=== PATIENT | male | born 1965 | race African-American/Black ===

== ENCOUNTER 2017-02-11 00:42 | Emergency (ER) | payer MEDICAID ==
[~2017-02-11] VITALS: Ht 185.4 cm; Wt 81.8 kg
[2017-02-11 00:44] VITALS: BP 129/98
== END 2017-02-11 04:00 | disposition left against medical advice (07) ==
LOC: ER 00:42
DX: R53.83 Other fatigue (principal); Z53.21 Procedure and treatment not carried out due to patient leaving prior to being seen by health care provider
CPT/HCPCS: 93005

== ENCOUNTER 2017-02-22 10:23 | Emergency (ER) | payer MEDICAID ==
[~2017-02-22] VITALS: Ht 180.3 cm; Wt 90.0 kg
[2017-02-22 10:24] VITALS: BP 103/80
== END 2017-02-22 13:36 | disposition home or self-care (01) ==
LOC: ER 10:48
DX: Z04.8 Encounter for examination and observation for other specified reasons (principal); I12.9 Hypertensive chronic kidney disease with stage 1 through stage 4 chronic kidney disease, or unspecified chronic kidney disease; E11.22 Type 2 diabetes mellitus with diabetic chronic kidney disease; N18.9 Chronic kidney disease, unspecified; K76.9 Liver disease, unspecified
CPT/HCPCS: 99283

== ENCOUNTER 2017-02-22 23:08 | Emergency (ER) | payer MEDICAID ==
[~2017-02-22] VITALS: Ht 182.9 cm; Wt 81.0 kg
[2017-02-23 03:03] LABS: BASOPHILS % 0.3 % (0.0-2.0); HEMATOCRIT. 46.5 % (42.0-52.0); HEMOGLOBIN. 15.5 g/dL (14.0-18.0); LYMPHOCYTES % 44.8 % (20.0-50.0); MEAN CORPUSCULAR HEMOGLOBIN 27.2 pg (28.0-32.0); MEAN CORPUSCULAR VOLUME 81.5 fL (80.0-94.0); MEAN PLATELET VOLUME 9.1 fl (7.4-10.4); MONOCYTES % 7.4 % (2.0-8.0); NEUTROPHILS % 45.5 % (40.0-76.0); PLATELET 138 x1000/uL (130-400); RED BLOOD CELL COUNT 5.71 mill/uL (4.7-6.1)
[2017-02-23 03:05] LABS: CARBON DIOXIDE 23 mEq/L (21-32); CHLORIDE 105 mEq/L (98-107); ETHANOL BLOOD < 10 mg/dL
[2017-02-23] MEDS ORDERED: SODIUM CHLORIDE 0.9% 1,000 ML IV ONE (05:00)
[2017-02-23 10:35] VITALS: BP 138/109
== END 2017-02-23 10:38 | disposition home or self-care (01) ==
LOC: ER 23:08
DX: R40.4 Transient alteration of awareness (principal); F14.10 Cocaine abuse, uncomplicated; F12.10 Cannabis abuse, uncomplicated; R03.0 Elevated blood-pressure reading, without diagnosis of hypertension; F91.8 Other conduct disorders; E11.9 Type 2 diabetes mellitus without complications; I51.9 Heart disease, unspecified
CPT/HCPCS: 36415; 80048; 80307; 80329; 85025; 99284; G0482; J7030

== ENCOUNTER 2017-04-01 12:15 | Inpatient (IN) | payer MEDICAID ==
[~2017-04-01] VITALS: Ht 167.6 cm; Wt 77.1 kg
[2017-04-01 15:21] LABS: BASOPHILS % 1.2 % (0.0-2.0); EOSINOPHILS % 0.5 % (0.0-5.0); HEMATOCRIT. 46.7 % (42.0-52.0); HEMOGLOBIN. 15.1 g/dL (14.0-18.0); LYMPHOCYTES % 33.7 % (20.0-50.0); MEAN CORPUSCULAR HEMOGLOBIN 25.7 pg (28.0-32.0); MEAN CORPUSCULAR VOLUME 79.7 fL (80.0-94.0); MEAN PLATELET VOLUME 8.1 fl (7.4-10.4); NEUTROPHILS % 57.6 % (40.0-76.0); PLATELET 203 x1000/uL (130-400); RED BLOOD CELL COUNT 5.86 mill/uL (4.7-6.1); RED CELL DISTRIBUTION WIDTH 17.3 % (11.6-14.6)
[2017-04-01 15:24] LABS: CARBON DIOXIDE 26 mEq/L (21-32); CHLORIDE 97 mEq/L (98-107)
[2017-04-01 15:30] LABS: TROPONIN I < 0.02 ng/mL (0.00-0.04)
[2017-04-01 15:37] LABS: D-DIMER 8.07 mg/L FEU (<0.50); INR 1.7; PROTHROMBIN TIME 17.7 sec (9.4-11.6)
[2017-04-01] MEDS ORDERED: LEVOFLOXACIN 750MG PREMIX 150 ML IV NR (15:45)
[2017-04-01] MEDS ORDERED: SODIUM CHLORIDE 0.9% 1000ML BAG (SEPSIS BOLUS) IV ONE (18:15)
[2017-04-01 22:00] VITALS: BP 120/87
[2017-04-01] MEDS ORDERED: IPRATROPIUM/ALBUTEROL 0.5-3(2.5)MG/3ML NEB INH PRN (23:00)
[2017-04-01] MEDS ORDERED: HYDROMORPHONE HCL/PF 2MG/ML CPJ IV PRN (23:00)
[2017-04-01] MEDS ORDERED: ACETAMINOPHEN 325MG TABLET PO PRN (23:00)
[2017-04-01] MEDS ORDERED: CLONIDINE 0.1MG TABLET PO PRN (23:00)
[2017-04-01] MEDS ORDERED: GUAIFENESIN 200MG/10ML SUGAR FREE UDC PO PRN (23:00)
[2017-04-01] MEDS ORDERED: ONDANSETRON HCL 4MG/2ML VIAL IV PRN (23:00)
[2017-04-01] MEDS ORDERED: HYDROCODONE/ACETAMINOPHEN 5/325MG TABLET PO PRN (23:00)
[2017-04-01] MEDS ORDERED: DOCUSATE SODIUM 100MG CAPSULE PO PRN (23:00)
[2017-04-01] MEDS ORDERED: DEXTROSE 50% WATER 50ML SYRINGE IV PRN (23:15)
[2017-04-02] VITALS: BP 125/96
[2017-04-02 04:00] VITALS: BP 140/95
[2017-04-02] MEDS: BLOOD SUGAR DIAGNOSTIC STRIP TEST SCH ×4 (06:05→20:25)
[2017-04-02] MEDS: INSULIN LISPRO 100 UNITS/ML SUBCUT SCH ×4 (06:11→21:00)
[2017-04-02 07:34] LABS: CARBON DIOXIDE 22 mEq/L (21-32); CHLORIDE 101 mEq/L (98-107); HDL CHOLESTEROL 17 mg/dL (40-59); LDL CHOLESTEROL 113 mg/dL (5-100)
[2017-04-02 08:00] VITALS: BP 131/95
[2017-04-02] MEDS: ASPIRIN 81MG EC TABLET PO SCH (09:01)
[2017-04-02] MEDS: ENOXAPARIN 40MG/0.4ML SYR SUBCUT SCH (09:01)
[2017-04-02] MEDS: FUROSEMIDE 40MG/4ML VIAL IV SCH (09:01)
[2017-04-02] MEDS: METOPROLOL TARTRATE 25MG TABLET PO SCH ×2 (09:02→20:28)
[2017-04-02 09:55] LABS: BASOPHILS % 0.9 % (0.0-2.0); EOSINOPHILS % 0.3 % (0.0-5.0); HEMATOCRIT. 44.3 % (42.0-52.0); HEMOGLOBIN. 14.1 g/dL (14.0-18.0); LYMPHOCYTES % 33.3 % (20.0-50.0); MEAN CORPUSCULAR HEMOGLOBIN 25.4 pg (28.0-32.0); MEAN PLATELET VOLUME 8.6 fl (7.4-10.4); MONOCYTES % 12.3 % (2.0-8.0); NEUTROPHILS % 53.2 % (40.0-76.0); PLATELET 173 x1000/uL (130-400); RED BLOOD CELL COUNT 5.54 mill/uL (4.7-6.1); RED CELL DISTRIBUTION WIDTH 17.8 % (11.6-14.6)
[2017-04-02 12:17] VITALS: BP 117/94
[2017-04-02] MEDS ORDERED: IPRATROPIUM/ALBUTEROL 0.5-3(2.5)MG/3ML NEB INH PRN (15:15)
[2017-04-02 16:00] VITALS: BP 115/88
[2017-04-02] MEDS: LEVOFLOXACIN 500MG PREMIX 100 ML IV SCH (17:30)
[2017-04-02] MEDS: METHYLPREDNISOLONE SOD SUCC 125 MG/2 ML VIAL IV SCH (17:30)
[2017-04-02 17:32] LABS: BG BASE EXCESS -5.4 mmol/L (-2.0-2.0); BG CARBOXYHEMOGLOBIN 0.9 % (0.5-1.5); BG DEOXYHEMOGLOBIN 1.2 % (0.0-5.0); BG HCO3 ACT 16.4 mmol/L (22.0-26.0); BG METHEMOGLOBIN 0.3 % (0.0-1.5); BG OXYGEN SATURATION 98.8 % (92.0-98.5); BG OXYHEMOGLOBIN 97.6 % (94.0-97.0); BG PCO2 24.3 mmHg (35.0-45.0); BG PH 7.446 (7.350-7.450); BG PO2 138.1 mmHg (75.0-100.0); BG SAMPLE SITE RIGHT RADIAL; BG TOTAL HEMOGLOBIN 16.1 g/dL (12.0-18.0); BG VENT MODE NASAL CANNULA
[2017-04-02 20:00] VITALS: BP 120/96
[2017-04-02] MEDS: IPRATROPIUM/ALBUTEROL 0.5-3(2.5)MG/3ML NEB HHN SCH (21:07)
[2017-04-03] VITALS: BP 116/94
[2017-04-03] MEDS: IPRATROPIUM/ALBUTEROL 0.5-3(2.5)MG/3ML NEB HHN SCH ×2 (01:03→09:33)
[2017-04-03] MEDS: METHYLPREDNISOLONE SOD SUCC 125 MG/2 ML VIAL IV SCH ×3 (01:51→18:07)
[2017-04-03 04:00] VITALS: BP 117/96
[2017-04-03] MEDS: BLOOD SUGAR DIAGNOSTIC STRIP TEST SCH ×4 (06:11→21:00)
[2017-04-03] MEDS: INSULIN LISPRO 100 UNITS/ML SUBCUT SCH ×4 (06:14→22:10)
[2017-04-03 08:00] VITALS: BP 118/84
[2017-04-03] MEDS: ENOXAPARIN 40MG/0.4ML SYR SUBCUT SCH (08:53)
[2017-04-03] MEDS: ASPIRIN 81MG EC TABLET PO SCH (09:19)
[2017-04-03] MEDS: METOPROLOL TARTRATE 25MG TABLET PO SCH ×2 (09:20→21:49)
[2017-04-03] MEDS: FUROSEMIDE 40MG/4ML VIAL IV SCH (09:20)
[2017-04-03 12:00] VITALS: BP 117/93
[2017-04-03 16:00] VITALS: BP 115/86
[2017-04-03] MEDS: LEVOFLOXACIN 500MG PREMIX 100 ML IV SCH (18:05)
[2017-04-03 20:00] VITALS: BP 120/80
[2017-04-04] VITALS: BP 122/75
[2017-04-04] MEDS: IPRATROPIUM/ALBUTEROL 0.5-3(2.5)MG/3ML NEB HHN SCH ×2 (00:59→09:16)
[2017-04-04] MEDS: METHYLPREDNISOLONE SOD SUCC 125 MG/2 ML VIAL IV SCH ×2 (01:32→09:21)
[2017-04-04 04:00] VITALS: BP 99/76
[2017-04-04] MEDS: BLOOD SUGAR DIAGNOSTIC STRIP TEST SCH ×2 (06:17→12:10)
[2017-04-04] MEDS: INSULIN LISPRO 100 UNITS/ML SUBCUT SCH ×2 (06:56→12:40)
[2017-04-04 08:00] VITALS: BP 109/83
[2017-04-04] MEDS: ENOXAPARIN 40MG/0.4ML SYR SUBCUT SCH (09:00)
[2017-04-04] MEDS: METOPROLOL TARTRATE 25MG TABLET PO SCH (09:00)
[2017-04-04] MEDS: ASPIRIN 81MG EC TABLET PO SCH (09:19)
[2017-04-04] MEDS: FUROSEMIDE 40MG/4ML VIAL IV SCH (09:22)
[2017-04-04 12:00] VITALS: BP 117/93
[2017-04-04 14:46] VITALS: BP 118/76
== END 2017-04-04 16:15 | disposition home or self-care (01) | DRG 720 ==
LOC: ER 15:26 → 8WST 16:33 → EDBEDREQ 16:43 → ENRESERV 19:46
PROVIDERS: ADMIT Hospitalist; ATTEND Hospitalist
DX: A41.9 Sepsis, unspecified organism (principal); J18.9 Pneumonia, unspecified organism; E11.22 Type 2 diabetes mellitus with diabetic chronic kidney disease; E78.5 Hyperlipidemia, unspecified; F17.210 Nicotine dependence, cigarettes, uncomplicated; I25.10 Atherosclerotic heart disease of native coronary artery without angina pectoris; J44.0 Chronic obstructive pulmonary disease with (acute) lower respiratory infection; J44.1 Chronic obstructive pulmonary disease with (acute) exacerbation; N18.9 Chronic kidney disease, unspecified; R65.20 Severe sepsis without septic shock; I12.9 Hypertensive chronic kidney disease with stage 1 through stage 4 chronic kidney disease, or unspecified chronic kidney disease
CPT/HCPCS: 36415; 36600; 71010; 78582; 80053; 80061; 82375; 82805; 82962; 83605; 83880; 84484; 85025; 85379; 85610; 87040; 93005; 93306; 93970; 94640; 94664; 96365; 99291; A9558; C1893; J1650; J1815; J1940; J1956; J2930; J7030; J7040; J7620

== ENCOUNTER 2017-04-18 22:05 | Inpatient (IN) | payer MEDICAID ==
[~2017-04-18] VITALS: Ht 175.3 cm; Wt 86.2 kg
[2017-04-18] MEDS ORDERED: FUROSEMIDE 40MG/4ML VIAL IV STA (22:18)
[2017-04-18 22:50] LABS: BASOPHILS % 1.1 % (0.0-2.0); EOSINOPHILS % 0.1 % (0.0-5.0); HEMATOCRIT. 43.9 % (42.0-52.0); HEMOGLOBIN. 14.4 g/dL (14.0-18.0); LYMPHOCYTES % 20.5 % (20.0-50.0); MEAN CORPUSCULAR HEMOGLOBIN 25.4 pg (28.0-32.0); MEAN CORPUSCULAR VOLUME 77.4 fL (80.0-94.0); MEAN PLATELET VOLUME 8.1 fl (7.4-10.4); MONOCYTES % 5.7 % (2.0-8.0); NEUTROPHILS % 72.6 % (40.0-76.0); PLATELET 124 x1000/uL (130-400); RED BLOOD CELL COUNT 5.67 mill/uL (4.7-6.1); RED CELL DISTRIBUTION WIDTH 18.5 % (11.6-14.6)
[2017-04-18 23:08] LABS: CARBON DIOXIDE 23 mEq/L (21-32); CHLORIDE 99 mEq/L (98-107); TROPONIN I 0.04 ng/mL (0.00-0.04)
[2017-04-19 02:10] VITALS: BP 125/90
[2017-04-19 04:00] VITALS: BP 127/94
[2017-04-19] MEDS ORDERED: MORPHINE SULFATE 4 MG/ML CPJ (NOT FOR IM USE) IV PRN (04:45)
[2017-04-19] MEDS ORDERED: ONDANSETRON HCL 4MG/2ML VIAL IV PRN (04:45)
[2017-04-19] MEDS ORDERED: CLONIDINE 0.1MG TABLET PO PRN (04:45)
[2017-04-19 07:35] LABS: BASOPHILS % 1.4 % (0.0-2.0); EOSINOPHILS % 0.2 % (0.0-5.0); HEMATOCRIT. 47.7 % (42.0-52.0); HEMOGLOBIN. 15.4 g/dL (14.0-18.0); LYMPHOCYTES % 22.1 % (20.0-50.0); MEAN CORPUSCULAR HEMOGLOBIN 25.4 pg (28.0-32.0); MEAN CORPUSCULAR VOLUME 78.7 fL (80.0-94.0); MEAN PLATELET VOLUME 8.9 fl (7.4-10.4); MONOCYTES % 6.5 % (2.0-8.0); NEUTROPHILS % 69.8 % (40.0-76.0); PLATELET 117 x1000/uL (130-400); RED BLOOD CELL COUNT 6.06 mill/uL (4.7-6.1); RED CELL DISTRIBUTION WIDTH 18.7 % (11.6-14.6)
[2017-04-19 07:58] VITALS: BP 108/88
[2017-04-19 08:06] LABS: CARBON DIOXIDE 21 mEq/L (21-32); CHLORIDE 99 mEq/L (98-107); CREATINE KINASE 174 IU/L (39-308); CREATINE KINASE MB FRACTION 2.4 ng/mL (0.5-3.6); HDL CHOLESTEROL 31 mg/dL (40-59); LDL CHOLESTEROL 101 mg/dL (5-100); TROPONIN I 0.02 ng/mL (0.00-0.04)
[2017-04-19] MEDS: FUROSEMIDE 100MG/10ML VIAL IVP SCH (08:43)
[2017-04-19] MEDS: ENOXAPARIN 40MG/0.4ML SYR SUBCUT SCH (08:44)
[2017-04-19] MEDS: ASPIRIN 81MG TABLET PO SCH (11:47)
[2017-04-19 12:00] VITALS: BP 119/93
[2017-04-19 16:00] VITALS: BP 108/88
[2017-04-19 16:16] LABS: CREATINE KINASE MB FRACTION 2.3 ng/mL (0.5-3.6); TROPONIN I 0.03 ng/mL (0.00-0.04)
[2017-04-19 20:00] VITALS: BP 118/92
[2017-04-19] MEDS: ATORVASTATIN CALCIUM 10MG TABLET PO SCH (21:40)
[2017-04-20] VITALS: BP 103/74
[2017-04-20 04:00] VITALS: BP 129/97
[2017-04-20 08:00] VITALS: BP 132/90
[2017-04-20] MEDS: FUROSEMIDE 100MG/10ML VIAL IVP SCH (08:28)
[2017-04-20] MEDS: ENOXAPARIN 40MG/0.4ML SYR SUBCUT SCH (08:29)
[2017-04-20] MEDS: ASPIRIN 81MG TABLET PO SCH (08:29)
[2017-04-20 12:00] VITALS: BP 117/90
[2017-04-20] MEDS: LEVOFLOXACIN 500MG PREMIX 100 ML IV SCH (15:14)
[2017-04-20] MEDS: GABAPENTIN 300MG CAPSULE PO SCH ×2 (15:14→21:00)
[2017-04-20 16:00] VITALS: BP 107/85
[2017-04-20 20:00] VITALS: BP 113/89
[2017-04-20] MEDS: ATORVASTATIN CALCIUM 10MG TABLET PO SCH (21:00)
[2017-04-21] VITALS (7 sets, daily range): BP systolic 110–121; BP diastolic 81–93
[2017-04-21] MEDS: GABAPENTIN 300MG CAPSULE PO SCH ×3 (05:06→21:29)
[2017-04-21] MEDS: ASPIRIN 81MG TABLET PO SCH (09:32)
[2017-04-21] MEDS: FUROSEMIDE 100MG/10ML VIAL IVP SCH (09:32)
[2017-04-21] MEDS: LEVOFLOXACIN 500MG PREMIX 100 ML IV SCH (09:33)
[2017-04-21] MEDS: ENOXAPARIN 40MG/0.4ML SYR SUBCUT SCH (09:33)
[2017-04-21] MEDS: ATORVASTATIN CALCIUM 10MG TABLET PO SCH (21:29)
[2017-04-22 04:00] VITALS: BP 121/95
[2017-04-22] MEDS: GABAPENTIN 300MG CAPSULE PO SCH ×3 (06:37→21:05)
[2017-04-22 07:53] VITALS: BP 115/88
[2017-04-22 08:15] LABS: EOSINOPHILS % 0.2 % (0.0-5.0); HEMATOCRIT. 47.3 % (42.0-52.0); HEMOGLOBIN. 15.2 g/dL (14.0-18.0); LYMPHOCYTES % 20.1 % (20.0-50.0); MEAN CORPUSCULAR HEMOGLOBIN 25.3 pg (28.0-32.0); MEAN CORPUSCULAR VOLUME 78.5 fL (80.0-94.0); MEAN PLATELET VOLUME 8.5 fl (7.4-10.4); MONOCYTES % 4.5 % (2.0-8.0); NEUTROPHILS % 74.2 % (40.0-76.0); PLATELET 158 x1000/uL (130-400); RED BLOOD CELL COUNT 6.02 mill/uL (4.7-6.1); RED CELL DISTRIBUTION WIDTH 19.5 % (11.6-14.6)
[2017-04-22 08:26] LABS: CARBON DIOXIDE 28 mEq/L (21-32); CHLORIDE 95 mEq/L (98-107)
[2017-04-22] MEDS: ASPIRIN 81MG TABLET PO SCH (10:04)
[2017-04-22] MEDS: FUROSEMIDE 100MG/10ML VIAL IVP SCH (10:04)
[2017-04-22] MEDS: ENOXAPARIN 40MG/0.4ML SYR SUBCUT SCH (10:05)
[2017-04-22] MEDS: LEVOFLOXACIN 500MG PREMIX 100 ML IV SCH (10:06)
[2017-04-22 12:26] VITALS: BP 121/78
[2017-04-22 16:59] VITALS: BP 109/86
[2017-04-22 19:58] VITALS: BP 121/96
[2017-04-22 20:26] VITALS: BP 121/96
[2017-04-22] MEDS: ATORVASTATIN CALCIUM 10MG TABLET PO SCH (21:05)
[2017-04-23] VITALS: BP 137/98
[2017-04-23 04:00] VITALS: BP 122/89
[2017-04-23] MEDS: GABAPENTIN 300MG CAPSULE PO SCH ×3 (05:47→21:22)
[2017-04-23 08:00] VITALS: BP 127/90
[2017-04-23] MEDS: FUROSEMIDE 100MG/10ML VIAL IVP SCH (10:12)
[2017-04-23] MEDS: LEVOFLOXACIN 500MG TABLET PO SCH (10:12)
[2017-04-23] MEDS: ASPIRIN 81MG TABLET PO SCH (10:12)
[2017-04-23] MEDS: ENOXAPARIN 40MG/0.4ML SYR SUBCUT SCH (10:13)
[2017-04-23 12:00] VITALS: BP 125/98
[2017-04-23 16:00] VITALS: BP 100/80
[2017-04-23 20:00] VITALS: BP 124/93
[2017-04-23] MEDS: ATORVASTATIN CALCIUM 10MG TABLET PO SCH (21:22)
[2017-04-24] VITALS: BP 112/96
[2017-04-24 04:00] VITALS: BP 144/107
[2017-04-24] MEDS: GABAPENTIN 300MG CAPSULE PO SCH ×2 (05:15→14:19)
[2017-04-24 08:00] VITALS: BP 115/90
[2017-04-24] MEDS: LEVOFLOXACIN 500MG TABLET PO SCH (09:23)
[2017-04-24] MEDS: ENOXAPARIN 40MG/0.4ML SYR SUBCUT SCH (09:23)
[2017-04-24] MEDS: FUROSEMIDE 100MG/10ML VIAL IVP SCH (09:23)
[2017-04-24] MEDS: ASPIRIN 81MG TABLET PO SCH (09:23)
[2017-04-24 12:00] VITALS: BP 128/83
[2017-04-24 15:11] VITALS: BP 128/83
[2017-04-24 16:00] VITALS: BP 101/87
== END 2017-04-24 16:25 | disposition home or self-care (01) | DRG 140 ==
LOC: ER 22:05 → UNDOADMIN 04-19 00:59 → 7WST 04-19 00:59 → EDBEDREQ 04-19 01:04 → ENRESERV 04-19 01:19
PROVIDERS: ADMIT Hospitalist; ATTEND Hospitalist
DX: J44.0 Chronic obstructive pulmonary disease with (acute) lower respiratory infection (principal); N17.0 Acute kidney failure with tubular necrosis; I50.21 Acute systolic (congestive) heart failure; J18.9 Pneumonia, unspecified organism; I11.0 Hypertensive heart disease with heart failure; E11.42 Type 2 diabetes mellitus with diabetic polyneuropathy; E78.5 Hyperlipidemia, unspecified; F17.200 Nicotine dependence, unspecified, uncomplicated; F14.90 Cocaine use, unspecified, uncomplicated; I25.10 Atherosclerotic heart disease of native coronary artery without angina pectoris; Z59.0 Homelessness; Z72.89 Other problems related to lifestyle; E44.1 Mild protein-calorie malnutrition
CPT/HCPCS: 36415; 51702; 71010; 80048; 80053; 80061; 82550; 82553; 83880; 84484; 85025; 93005; 93306; 93923; 93970; 96374; 97162; 99291; C1893; J1650; J1940; J1956; J2270; J7050; A4315

== ENCOUNTER 2017-04-27 15:02 | Inpatient (IN) | payer MEDICAID ==
[~2017-04-27] VITALS: Ht 172.7 cm; Wt 98.6 kg
[2017-04-27] MEDS ORDERED: ASPI-1159 PO (15:16)
[2017-04-27] MEDS ORDERED: FURO-152 PO (15:16)
[2017-04-27] MEDS ORDERED: SODIUM CHLORIDE 0.9% 500 ML IV ONE (18:30)
[2017-04-27 19:46] LABS: BASOPHILS % 1.9 % (0.0-2.0); EOSINOPHILS % 0.4 % (0.0-5.0); HEMATOCRIT. 42.2 % (42.0-52.0); HEMOGLOBIN. 13.8 g/dL (14.0-18.0); LYMPHOCYTES % 22.6 % (20.0-50.0); MEAN CORPUSCULAR HEMOGLOBIN 25.3 pg (28.0-32.0); MEAN CORPUSCULAR VOLUME 77.4 fL (80.0-94.0); MEAN PLATELET VOLUME 7.8 fl (7.4-10.4); MONOCYTES % 9.7 % (2.0-8.0); NEUTROPHILS % 65.4 % (40.0-76.0); PLATELET 197 x1000/uL (130-400); RED BLOOD CELL COUNT 5.45 mill/uL (4.7-6.1); RED CELL DISTRIBUTION WIDTH 19.6 % (11.6-14.6)
[2017-04-27 19:48] LABS: INR 1.4; PROTHROMBIN TIME 14.4 sec (9.4-11.6)
[2017-04-27 19:49] LABS: CHLORIDE 97 mEq/L (98-107)
[2017-04-27 19:58] LABS: CARBON DIOXIDE 29 mEq/L (21-32); TROPONIN I < 0.02 ng/mL (0.00-0.04)
[2017-04-27 22:43] LABS: CLARITY URINE CLEAR (CLEAR); COLOR URINE DARK YELLOW (YELLOW); GLUCOSE URINE NEGATIVE (NEGATIVE); KETONES URINE NEGATIVE (NEGATIVE); LEUKOCYTE ESTERASE URINE NEGATIVE (NEGATIVE); NITRITE URINE NEGATIVE (NEGATIVE); OCCULT BLOOD URINE NEGATIVE (NEGATIVE); PH URINE 5.5 (4.5-8.0); PROTEIN URINE NEGATIVE (NEGATIVE)
[2017-04-27 22:59] LABS: *AMPHETAMINES SCREEN URINE NEGATIVE (NEGATIVE); *BARBITURATES SCREEN URINE NEGATIVE (NEGATIVE); *BENZODIAZEPINES SCREEN URINE NEGATIVE (NEGATIVE); *COCAINE SCREEN URINE PRESUMTIVE POSITIVE (NEGATIVE); CANNABINOID URINE SCREEN PRESUMTIVE POSITIVE (NEGATIVE); METHADONE URINE SCREEN NEGATIVE (NEGATIVE); OPIATES URINE SCREEN PRESUMTIVE POSITIVE (NEGATIVE); PHENCYCLIDINE URINE SCREEN NEGATIVE (NEGATIVE)
[2017-04-28] VITALS (58 sets, daily range): BP systolic 82–136; BP diastolic 65–119
[2017-04-28] MEDS ORDERED: MORPHINE SULFATE 4 MG/ML CPJ (NOT FOR IM USE) IV PRN (00:30)
[2017-04-28] MEDS ORDERED: AZITHROMYCIN 500 MG in DEXT 5% WATER 250 ML IV SCH (00:30)
[2017-04-28] MEDS ORDERED: HYDROCODONE/ACETAMINOPHEN 5/325MG TABLET PO PRN (00:30)
[2017-04-28] MEDS ORDERED: IPRATROPIUM/ALBUTEROL 0.5-3(2.5)MG/3ML NEB HHN SCH (00:30)
[2017-04-28] MEDS ORDERED: ACETAMINOPHEN 325MG TABLET PO PRN (00:30)
[2017-04-28] MEDS ORDERED: LORAZEPAM 2MG/ML CPJ IV PRN (00:30)
[2017-04-28] MEDS ORDERED: EPINEPHRINE 0.1MG/ML (1:10,000) 10ML SYR ONE ×2 (02:25→11:14)
[2017-04-28 03:11] LABS: BG BASE EXCESS -15.4 mmol/L (-2.0-2.0); BG CARBOXYHEMOGLOBIN 1.8 % (0.5-1.5); BG DEOXYHEMOGLOBIN 2.2 % (0.0-5.0); BG FRACTION INSPIRED OXYGEN 100; BG METHEMOGLOBIN 0.4 % (0.0-1.5); BG OXYGEN SATURATION 97.8 % (92.0-98.5); BG OXYHEMOGLOBIN 95.6 % (94.0-97.0); BG PCO2 46.2 mmHg (35.0-45.0); BG PH 7.099 (7.350-7.450); BG PO2 134.4 mmHg (75.0-100.0); BG SAMPLE SITE RIGHT RADIAL; BG TIDAL VOLUME(mL) 600 mL; BG TOTAL HEMOGLOBIN 13.4 g/dL (12.0-18.0); BG VENT MODE VENT - A/C; BG VENT RATE 14 set
[2017-04-28] MEDS ORDERED: SODIUM CHLORIDE 0.9% 1000ML BAG (SEPSIS BOLUS) IV NR (03:30)
[2017-04-28] MEDS ORDERED: SODIUM BICARBONATE 8.4% 1 MEQ/ML 50ML SYR IV NR (03:30)
[2017-04-28] MEDS ORDERED: METRONIDAZOLE 500 MG PREMIX 100 ML IV NR (03:30)
[2017-04-28] MEDS ORDERED: PIPERACILLIN/TAZ 3.375G PREMIX 50 ML IV NR (03:30)
[2017-04-28] MEDS ORDERED: NOREPINEPHRINE 4 MG in DEXT 5% WATER 246 ML IV ONE (04:15)
[2017-04-28] MEDS ORDERED: NOREPINEPHRINE 4 MG in DEXT 5% WATER 246 ML IV PRN (04:15)
[2017-04-28 04:29] LABS: BASOPHILS % 1.5 % (0.0-2.0); EOSINOPHILS % 0.2 % (0.0-5.0); HEMOGLOBIN. 12.7 g/dL (14.0-18.0); LYMPHOCYTES % 18.9 % (20.0-50.0); MEAN CORPUSCULAR VOLUME 78.6 fL (80.0-94.0); MEAN PLATELET VOLUME 7.9 fl (7.4-10.4); MONOCYTES % 3.2 % (2.0-8.0); NEUTROPHILS % 76.2 % (40.0-76.0); PLATELET 181 x1000/uL (130-400); RED BLOOD CELL COUNT 5.09 mill/uL (4.7-6.1); RED CELL DISTRIBUTION WIDTH 19.1 % (11.6-14.6)
[2017-04-28 04:39] LABS: INR 1.6; PARTIAL THROMBOPLASTIN TIME 29.2 sec (23.4-31.0); PROTHROMBIN TIME 16.1 sec (9.4-11.6)
[2017-04-28 04:46] LABS: CARBON DIOXIDE 18 mEq/L (21-32); CHLORIDE 102 mEq/L (98-107); TROPONIN I 0.38 ng/mL (0.00-0.04)
[2017-04-28] MEDS ORDERED: ASPIRIN 81MG EC TABLET PO SCH (09:00)
[2017-04-28 09:48] LABS: BG BASE EXCESS -0.1 mmol/L (-2.0-2.0); BG CARBOXYHEMOGLOBIN 0.7 % (0.5-1.5); BG DEOXYHEMOGLOBIN 0.1 % (0.0-5.0); BG FRACTION INSPIRED OXYGEN 100; BG HCO3 ACT 19.5 mmol/L (22.0-26.0); BG METHEMOGLOBIN 0.3 % (0.0-1.5); BG OXYGEN SATURATION 99.9 % (92.0-98.5); BG OXYHEMOGLOBIN 98.9 % (94.0-97.0); BG PCO2 21.6 mmHg (35.0-45.0); BG PH 7.573 (7.350-7.450); BG PO2 408.3 mmHg (75.0-100.0); BG SAMPLE SITE LEFT RADIAL; BG TIDAL VOLUME(mL) 600 mL; BG TOTAL HEMOGLOBIN 15.4 g/dL (12.0-18.0); BG VENT MODE VENT - A/C; BG VENT RATE 14 set
[2017-04-28] MEDS: FUROSEMIDE 40MG/4ML VIAL IVP SCH (09:48)
[2017-04-28] MEDS ORDERED: IPRATROPIUM/ALBUTEROL 0.5-3(2.5)MG/3ML NEB HHN PRN (10:00)
[2017-04-28] MEDS: ASPIRIN 81MG EC TABLET PO SCH (10:16)
[2017-04-28] MEDS: FOLIC ACID 1MG TABLET PO SCH (10:16)
[2017-04-28] MEDS: ENOXAPARIN 40MG/0.4ML SYR SUBCUT SCH (10:17)
[2017-04-28] MEDS: IPRATROPIUM/ALBUTEROL 0.5-3(2.5)MG/3ML NEB HHN SCH ×3 (10:54→20:28)
[2017-04-28] MEDS ORDERED: CALCIUM CHLORIDE 1GM/10ML SYR IV ONE (11:14)
[2017-04-28] MEDS ORDERED: SODIUM BICARBONATE 7.5% 0.9 MEQ/ML 50ML SYR IV ONE (11:14)
[2017-04-28] MEDS ORDERED: VANCOMYCIN 2,000 MG in DEXT 5% WATER 500 ML IV SCH (12:30)
[2017-04-28] MEDS: PIPERACILLIN/TAZ 3.375G PREMIX 50 ML IV SCH ×3 (13:12→23:13)
[2017-04-28] MEDS: PANTOPRAZOLE SODIUM 40 MG/VIAL IV SCH (13:12)
[2017-04-28] MEDS: NOREPINEPHRINE 4 MG in DEXT 5% WATER 246 ML IV PRN (18:23)
[2017-04-29] VITALS (88 sets, daily range): BP systolic 84–111; BP diastolic 62–83
[2017-04-29] MEDS: IPRATROPIUM/ALBUTEROL 0.5-3(2.5)MG/3ML NEB HHN SCH ×6 (00:05→20:11)
[2017-04-29] MEDS: VANCOMYCIN 1 G PREMIX 200 ML IV SCH ×2 (00:10→12:33)
[2017-04-29] MEDS: PIPERACILLIN/TAZ 3.375G PREMIX 50 ML IV SCH ×4 (05:16→23:54)
[2017-04-29 06:00] LABS: BASOPHILS % 0.2 % (0.0-2.0); HEMATOCRIT. 49.8 % (42.0-52.0); HEMOGLOBIN. 16.1 g/dL (14.0-18.0); LYMPHOCYTES % 8.4 % (20.0-50.0); MEAN CORPUSCULAR HEMOGLOBIN 25.1 pg (28.0-32.0); MEAN CORPUSCULAR VOLUME 77.7 fL (80.0-94.0); MEAN PLATELET VOLUME 8.3 fl (7.4-10.4); MONOCYTES % 6.1 % (2.0-8.0); NEUTROPHILS % 85.3 % (40.0-76.0); PLATELET 264 x1000/uL (130-400); RED CELL DISTRIBUTION WIDTH 19.5 % (11.6-14.6)
[2017-04-29] MEDS ORDERED: VANCOMYCIN 1 G PREMIX 200 ML IV SCH (06:00)
[2017-04-29] MEDS: ASPIRIN 81MG EC TABLET PO SCH (06:40)
[2017-04-29] MEDS ORDERED: LISINOPRIL 2.5MG TABLET PO SCH (09:00)
[2017-04-29] MEDS: FOLIC ACID 1MG TABLET PO SCH (09:00)
[2017-04-29 09:12] LABS: BG BASE EXCESS -1.8 mmol/L (-2.0-2.0); BG CARBOXYHEMOGLOBIN 1.1 % (0.5-1.5); BG DEOXYHEMOGLOBIN 0.6 % (0.0-5.0); BG FRACTION INSPIRED OXYGEN 30; BG HCO3 ACT 16.7 mmol/L (22.0-26.0); BG METHEMOGLOBIN 0.6 % (0.0-1.5); BG OXYGEN SATURATION 99.4 % (92.0-98.5); BG OXYHEMOGLOBIN 97.7 % (94.0-97.0); BG PCO2 18.3 mmHg (35.0-45.0); BG PH 7.579 (7.350-7.450); BG PO2 138.9 mmHg (75.0-100.0); BG SAMPLE SITE RIGHT RADIAL; BG TIDAL VOLUME(mL) 550 mL; BG VENT MODE VENT - A/C; BG VENT RATE 12 set
[2017-04-29] MEDS: FUROSEMIDE 40MG/4ML VIAL IVP SCH (10:21)
[2017-04-29] MEDS: PANTOPRAZOLE SODIUM 40 MG/VIAL IV SCH (10:22)
[2017-04-29] MEDS: ENOXAPARIN 40MG/0.4ML SYR SUBCUT SCH (10:22)
[2017-04-29 12:58] LABS: BG BASE EXCESS -2.1 mmol/L (-2.0-2.0); BG CARBOXYHEMOGLOBIN 0.5 % (0.5-1.5); BG DEOXYHEMOGLOBIN 1.5 % (0.0-5.0); BG FRACTION INSPIRED OXYGEN 30; BG HCO3 ACT 17.6 mmol/L (22.0-26.0); BG METHEMOGLOBIN 0.5 % (0.0-1.5); BG OXYGEN SATURATION 98.5 % (92.0-98.5); BG OXYHEMOGLOBIN 97.5 % (94.0-97.0); BG PRESSURE SUPPORT 8; BG SAMPLE SITE RIGHT RADIAL; BG TOTAL HEMOGLOBIN 17.3 g/dL (12.0-18.0); BG VENT MODE VENT - CPAP
[2017-04-30] VITALS (99 sets, daily range): BP systolic 75–109; BP diastolic 50–81
[2017-04-30] MEDS: IPRATROPIUM/ALBUTEROL 0.5-3(2.5)MG/3ML NEB HHN SCH ×7 (00:10→23:53)
[2017-04-30] MEDS: PIPERACILLIN/TAZ 3.375G PREMIX 50 ML IV SCH (05:28)
[2017-04-30] MEDS ORDERED: VANCOMYCIN 1 G PREMIX 200 ML IV SCH (06:00)
[2017-04-30 06:44] LABS: BASOPHILS % 0.2 % (0.0-2.0); HEMATOCRIT. 46.3 % (42.0-52.0); HEMOGLOBIN. 15.1 g/dL (14.0-18.0); LYMPHOCYTES % 12.4 % (20.0-50.0); MEAN CORPUSCULAR VOLUME 76.8 fL (80.0-94.0); MEAN PLATELET VOLUME 8.7 fl (7.4-10.4); MONOCYTES % 10.3 % (2.0-8.0); NEUTROPHILS % 77.1 % (40.0-76.0); PLATELET 212 x1000/uL (130-400); RED BLOOD CELL COUNT 6.03 mill/uL (4.7-6.1); RED CELL DISTRIBUTION WIDTH 19.8 % (11.6-14.6)
[2017-04-30] MEDS: ENOXAPARIN 40MG/0.4ML SYR SUBCUT SCH (08:35)
[2017-04-30] MEDS: PANTOPRAZOLE SODIUM 40 MG/VIAL IV SCH (08:35)
[2017-04-30] MEDS: FOLIC ACID 1MG TABLET PO SCH (08:36)
[2017-04-30] MEDS: ASPIRIN 81MG TABLET NG SCH (08:36)
[2017-04-30 09:20] LABS: BG CARBOXYHEMOGLOBIN 0.8 % (0.5-1.5); BG DEOXYHEMOGLOBIN 1.6 % (0.0-5.0); BG FRACTION INSPIRED OXYGEN 30; BG HCO3 ACT 20.5 mmol/L (22.0-26.0); BG METHEMOGLOBIN 0.3 % (0.0-1.5); BG OXYGEN SATURATION 98.4 % (92.0-98.5); BG OXYHEMOGLOBIN 97.3 % (94.0-97.0); BG PCO2 29.5 mmHg (35.0-45.0); BG PO2 108.9 mmHg (75.0-100.0); BG PRESSURE SUPPORT 8; BG SAMPLE SITE RIGHT RADIAL; BG TOTAL HEMOGLOBIN 15.5 g/dL (12.0-18.0); BG VENT MODE VENT - CPAP
[2017-04-30] MEDS: PIPERACILLIN/TAZ 2.25G PREMIX 50 ML IV SCH ×2 (13:28→18:01)
[2017-04-30] MEDS ORDERED: MORPHINE SULFATE 2 MG/ML CPJ (NOT FOR IM USE) IV PRN (22:15)
[2017-05-01] VITALS (87 sets, daily range): BP systolic 84–107; BP diastolic 63–85
[2017-05-01] MEDS: SODIUM CHLORIDE 0.9% 1,000 ML IV SCH ×2 (01:05→22:15)
[2017-05-01] MEDS: PIPERACILLIN/TAZ 2.25G PREMIX 50 ML IV SCH ×4 (01:05→18:49)
[2017-05-01] MEDS: IPRATROPIUM/ALBUTEROL 0.5-3(2.5)MG/3ML NEB HHN SCH ×6 (04:13→23:56)
[2017-05-01 04:58] LABS: BASOPHILS % 0.4 % (0.0-2.0); EOSINOPHILS % 0.2 % (0.0-5.0); HEMATOCRIT. 45.9 % (42.0-52.0); HEMOGLOBIN. 15.2 g/dL (14.0-18.0); LYMPHOCYTES % 10.5 % (20.0-50.0); MEAN CORPUSCULAR HEMOGLOBIN 25.4 pg (28.0-32.0); MEAN PLATELET VOLUME 7.6 fl (7.4-10.4); MONOCYTES % 8.4 % (2.0-8.0); NEUTROPHILS % 80.5 % (40.0-76.0); PLATELET 193 x1000/uL (130-400); RED BLOOD CELL COUNT 5.96 mill/uL (4.7-6.1)
[2017-05-01 05:11] LABS: PHOSPHORUS 4.9 mg/dL (2.5-4.9)
[2017-05-01] MEDS: ENOXAPARIN 40MG/0.4ML SYR SUBCUT SCH (08:45)
[2017-05-01] MEDS: PANTOPRAZOLE SODIUM 40 MG/VIAL IV SCH (08:45)
[2017-05-01] MEDS: ASPIRIN 81MG TABLET NG SCH (08:45)
[2017-05-01] MEDS: FOLIC ACID 1MG TABLET PO SCH (08:45)
[2017-05-01 10:32] LABS: BG BASE EXCESS -1.3 mmol/L (-2.0-2.0); BG CARBOXYHEMOGLOBIN 1.3 % (0.5-1.5); BG DEOXYHEMOGLOBIN 1.7 % (0.0-5.0); BG FRACTION INSPIRED OXYGEN 30; BG HCO3 ACT 24.5 mmol/L (22.0-26.0); BG METHEMOGLOBIN 0.4 % (0.0-1.5); BG OXYGEN SATURATION 98.3 % (92.0-98.5); BG OXYHEMOGLOBIN 96.6 % (94.0-97.0); BG PCO2 44.6 mmHg (35.0-45.0); BG PH 7.357 (7.350-7.450); BG PO2 103.9 mmHg (75.0-100.0); BG PRESSURE SUPPORT 8; BG SAMPLE SITE RIGHT RADIAL; BG TOTAL HEMOGLOBIN 15.6 g/dL (12.0-18.0); BG VENT MODE VENT - CPAP
[2017-05-01] MEDS: NOREPINEPHRINE 4 MG in DEXT 5% WATER 246 ML IV PRN (23:46)
[2017-05-02] VITALS (96 sets, daily range): BP systolic 81–120; BP diastolic 58–98
[2017-05-02] MEDS: PIPERACILLIN/TAZ 2.25G PREMIX 50 ML IV SCH ×4 (01:09→18:11)
[2017-05-02] MEDS: IPRATROPIUM/ALBUTEROL 0.5-3(2.5)MG/3ML NEB HHN SCH ×5 (03:55→20:11)
[2017-05-02 08:43] LABS: BG BASE EXCESS 1.5 mmol/L (-2.0-2.0); BG CARBOXYHEMOGLOBIN 1.1 % (0.5-1.5); BG DEOXYHEMOGLOBIN 1.4 % (0.0-5.0); BG FRACTION INSPIRED OXYGEN 30; BG HCO3 ACT 25.7 mmol/L (22.0-26.0); BG METHEMOGLOBIN 0.4 % (0.0-1.5); BG OXYGEN SATURATION 98.6 % (92.0-98.5); BG OXYHEMOGLOBIN 97.1 % (94.0-97.0); BG PCO2 39.3 mmHg (35.0-45.0); BG PH 7.433 (7.350-7.450); BG PO2 125.4 mmHg (75.0-100.0); BG SAMPLE SITE RIGHT RADIAL; BG TIDAL VOLUME(mL) 500 mL; BG TOTAL HEMOGLOBIN 15.9 g/dL (12.0-18.0); BG VENT MODE VENT - A/C; BG VENT RATE 10 set
[2017-05-02 08:54] LABS: BASOPHILS % 0.6 % (0.0-2.0); EOSINOPHILS % 0.1 % (0.0-5.0); HEMOGLOBIN. 15.3 g/dL (14.0-18.0); LYMPHOCYTES % 9.8 % (20.0-50.0); MEAN CORPUSCULAR VOLUME 77.1 fL (80.0-94.0); MEAN PLATELET VOLUME 8.3 fl (7.4-10.4); MONOCYTES % 6.5 % (2.0-8.0); PLATELET 178 x1000/uL (130-400); RED CELL DISTRIBUTION WIDTH 20.3 % (11.6-14.6)
[2017-05-02] MEDS: ASPIRIN 81MG TABLET NG SCH (09:33)
[2017-05-02] MEDS: PANTOPRAZOLE SODIUM 40 MG/VIAL IV SCH (09:33)
[2017-05-02] MEDS: FOLIC ACID 1MG TABLET PO SCH (09:33)
[2017-05-02] MEDS: ENOXAPARIN 40MG/0.4ML SYR SUBCUT SCH (09:33)
[2017-05-02] MEDS ORDERED: METOCLOPRAMIDE HCL 10MG/2ML VIAL IV SCH (12:00)
[2017-05-02] MEDS: METOCLOPRAMIDE 10MG/10 ML UDC NG SCH ×2 (12:33→18:10)
[2017-05-02] MEDS: NOREPINEPHRINE 4 MG in DEXT 5% WATER 246 ML IV PRN (21:24)
[2017-05-03] VITALS (41 sets, daily range): BP systolic 76–128; BP diastolic 58–88
[2017-05-03] MEDS: METOCLOPRAMIDE 10MG/10 ML UDC NG SCH ×3 (00:32→13:40)
[2017-05-03] MEDS: PIPERACILLIN/TAZ 2.25G PREMIX 50 ML IV SCH ×3 (00:32→14:40)
[2017-05-03] MEDS: SODIUM CHLORIDE 0.9% 1,000 ML IV SCH (00:32)
[2017-05-03] MEDS: IPRATROPIUM/ALBUTEROL 0.5-3(2.5)MG/3ML NEB HHN SCH ×6 (04:00→19:57)
[2017-05-03 05:30] LABS: BASOPHILS % 0.3 % (0.0-2.0); EOSINOPHILS % 0.2 % (0.0-5.0); HEMATOCRIT. 43.6 % (42.0-52.0); HEMOGLOBIN. 14.3 g/dL (14.0-18.0); LYMPHOCYTES % 10.7 % (20.0-50.0); MEAN CORPUSCULAR HEMOGLOBIN 25.1 pg (28.0-32.0); MEAN CORPUSCULAR VOLUME 76.4 fL (80.0-94.0); MEAN PLATELET VOLUME 7.3 fl (7.4-10.4); MONOCYTES % 8.2 % (2.0-8.0); NEUTROPHILS % 80.6 % (40.0-76.0); PLATELET 171 x1000/uL (130-400); RED BLOOD CELL COUNT 5.71 mill/uL (4.7-6.1); RED CELL DISTRIBUTION WIDTH 19.7 % (11.6-14.6)
[2017-05-03] MEDS: FOLIC ACID 1MG TABLET PO SCH (10:29)
[2017-05-03] MEDS: ENOXAPARIN 40MG/0.4ML SYR SUBCUT SCH (10:29)
[2017-05-03] MEDS: PANTOPRAZOLE SODIUM 40 MG/VIAL IV SCH (10:29)
[2017-05-03] MEDS: ASPIRIN 81MG TABLET NG SCH (10:29)
[2017-05-03] MEDS ORDERED: KCL 20MEQ/100ML PREMIX 100 ML IV SCH (12:00)
[2017-05-03] MEDS ORDERED: SODIUM BICARBONATE 4% (2.4MEQ) 5ML VIAL IV ONE (12:54)
[2017-05-03] MEDS ORDERED: LIDOCAINE HCL 1% 20ML VIAL (Pyxis) INJ ONE (12:54)
[2017-05-03] MEDS: NOREPINEPHRINE 4 MG in DEXT 5% WATER 246 ML IV PRN (21:47)
[2017-05-04] VITALS (79 sets, daily range): BP systolic 85–116; BP diastolic 61–94
[2017-05-04] MEDS: IPRATROPIUM/ALBUTEROL 0.5-3(2.5)MG/3ML NEB HHN SCH ×6 (00:10→23:06)
[2017-05-04] MEDS: PIPERACILLIN/TAZ 2.25G PREMIX 50 ML IV SCH ×5 (01:00→18:02)
[2017-05-04] MEDS: METOCLOPRAMIDE 10MG/10 ML UDC NG SCH ×5 (01:59→18:01)
[2017-05-04] MEDS: SODIUM CHLORIDE 0.9% 1,000 ML IV SCH (02:02)
[2017-05-04 06:14] LABS: BASOPHILS % 0.4 % (0.0-2.0); EOSINOPHILS % 0.2 % (0.0-5.0); HEMATOCRIT. 44.2 % (42.0-52.0); HEMOGLOBIN. 14.3 g/dL (14.0-18.0); LYMPHOCYTES % 9.1 % (20.0-50.0); MEAN CORPUSCULAR HEMOGLOBIN 25.1 pg (28.0-32.0); MEAN CORPUSCULAR VOLUME 77.5 fL (80.0-94.0); MEAN PLATELET VOLUME 7.6 fl (7.4-10.4); MONOCYTES % 5.5 % (2.0-8.0); NEUTROPHILS % 84.8 % (40.0-76.0); PLATELET 154 x1000/uL (130-400); RED CELL DISTRIBUTION WIDTH 20.5 % (11.6-14.6)
[2017-05-04 06:34] LABS: CARBON DIOXIDE 26 mEq/L (21-32); CHLORIDE 112 mEq/L (98-107)
[2017-05-04] MEDS: PANTOPRAZOLE SODIUM 40 MG/VIAL IV SCH (08:08)
[2017-05-04] MEDS: FOLIC ACID 1MG TABLET PO SCH (08:08)
[2017-05-04] MEDS: ASPIRIN 81MG TABLET NG SCH (08:08)
[2017-05-04] MEDS: ENOXAPARIN 40MG/0.4ML SYR SUBCUT SCH (08:08)
[2017-05-04] MEDS ORDERED: DEXTROSE 50% WATER 50ML SYRINGE IV PRN (09:00)
[2017-05-04] MEDS: POTASSIUM CHLORIDE 20MEQ/PACKET PEG SCH (09:15)
[2017-05-04] MEDS: INSULIN LISPRO 100 UNITS/ML SUBCUT SCH ×2 (11:46→17:28)
[2017-05-04] MEDS: BLOOD SUGAR DIAGNOSTIC STRIP TEST SCH ×2 (11:46→17:28)
[2017-05-04] MEDS: DEXT 5%/0.9% NACL 1,000 ML IV SCH (18:03)
[2017-05-05] VITALS (101 sets, daily range): BP systolic 79–118; BP diastolic 55–94
[2017-05-05] MEDS: METOCLOPRAMIDE 10MG/10 ML UDC NG SCH ×4 (00:43→17:53)
[2017-05-05] MEDS: PIPERACILLIN/TAZ 2.25G PREMIX 50 ML IV SCH ×4 (00:43→18:08)
[2017-05-05] MEDS: BLOOD SUGAR DIAGNOSTIC STRIP TEST SCH ×4 (00:49→17:52)
[2017-05-05] MEDS: IPRATROPIUM/ALBUTEROL 0.5-3(2.5)MG/3ML NEB HHN SCH ×5 (03:16→20:58)
[2017-05-05] MEDS: NOREPINEPHRINE 4 MG in DEXT 5% WATER 246 ML IV PRN (05:46)
[2017-05-05] MEDS: INSULIN LISPRO 100 UNITS/ML SUBCUT SCH ×4 (06:00→17:52)
[2017-05-05] MEDS: ASPIRIN 81MG TABLET NG SCH (08:04)
[2017-05-05] MEDS: ENOXAPARIN 40MG/0.4ML SYR SUBCUT SCH (08:04)
[2017-05-05 08:12] LABS: BASOPHILS % 0.8 % (0.0-2.0); EOSINOPHILS % 0.2 % (0.0-5.0); HEMATOCRIT. 45.5 % (42.0-52.0); HEMOGLOBIN. 14.5 g/dL (14.0-18.0); LYMPHOCYTES % 14.4 % (20.0-50.0); MEAN CORPUSCULAR HEMOGLOBIN 24.5 pg (28.0-32.0); MEAN CORPUSCULAR VOLUME 76.7 fL (80.0-94.0); MEAN PLATELET VOLUME 7.3 fl (7.4-10.4); MONOCYTES % 5.4 % (2.0-8.0); NEUTROPHILS % 79.2 % (40.0-76.0); PLATELET 168 x1000/uL (130-400); RED BLOOD CELL COUNT 5.93 mill/uL (4.7-6.1); RED CELL DISTRIBUTION WIDTH 20.5 % (11.6-14.6)
[2017-05-05 08:19] LABS: PHOSPHORUS 2.1 mg/dL (2.5-4.9)
[2017-05-05] MEDS: POTASSIUM CHLORIDE 20MEQ/PACKET PEG SCH (08:30)
[2017-05-05] MEDS: FOLIC ACID 1MG TABLET PO SCH (08:30)
[2017-05-05] MEDS: PANTOPRAZOLE SODIUM 40 MG/VIAL IV SCH (08:30)
[2017-05-05] MEDS: DEXT 5%/0.9% NACL 1,000 ML IV SCH (10:40)
[2017-05-05] MEDS ORDERED: MAGNESIUM 2 G PREMIX 50 ML IV NR (11:00)
[2017-05-05] MEDS ORDERED: POTASSIUM PHOS,M-BASIC-D-BASIC 20 MMOL in DEXT 5% WATER 243.3333 ML IV NR (14:00)
[2017-05-05] MEDS ORDERED: VANCOMYCIN 1 G PREMIX 200 ML IV NR (15:00)
[2017-05-05] MEDS: DEXT 5%/0.2% NACL 1,000 ML IV SCH (18:03)
[2017-05-05] MEDS ORDERED: PIPERACILLIN/TAZ 3.375G PREMIX 50 ML IV SCH (19:00)
[2017-05-06] VITALS (92 sets, daily range): BP systolic 83–122; BP diastolic 57–101
[2017-05-06] MEDS: METOCLOPRAMIDE 10MG/10 ML UDC NG SCH ×4 (00:26→17:40)
[2017-05-06] MEDS: BLOOD SUGAR DIAGNOSTIC STRIP TEST SCH ×4 (00:26→17:14)
[2017-05-06] MEDS: PIPERACILLIN/TAZ 2.25G PREMIX 50 ML IV SCH ×4 (00:26→17:59)
[2017-05-06] MEDS: IPRATROPIUM/ALBUTEROL 0.5-3(2.5)MG/3ML NEB HHN SCH ×6 (00:26→20:06)
[2017-05-06] MEDS: NOREPINEPHRINE 4 MG in DEXT 5% WATER 246 ML IV PRN ×2 (01:48→17:59)
[2017-05-06 05:37] LABS: HEMATOCRIT. 44.8 % (42.0-52.0); HEMOGLOBIN. 14.7 g/dL (14.0-18.0); LYMPHOCYTES % 13.3 % (20.0-50.0); MEAN CORPUSCULAR HEMOGLOBIN 25.2 pg (28.0-32.0); MEAN PLATELET VOLUME 7.5 fl (7.4-10.4); MONOCYTES % 7.5 % (2.0-8.0); NEUTROPHILS % 76.2 % (40.0-76.0); PLATELET 142 x1000/uL (130-400); RED BLOOD CELL COUNT 5.82 mill/uL (4.7-6.1); RED CELL DISTRIBUTION WIDTH 20.8 % (11.6-14.6)
[2017-05-06] MEDS: INSULIN LISPRO 100 UNITS/ML SUBCUT SCH ×4 (06:00→17:15)
[2017-05-06 07:02] LABS: PHOSPHORUS 3.5 mg/dL (2.5-4.9)
[2017-05-06] MEDS: PANTOPRAZOLE SODIUM 40 MG/VIAL IV SCH (08:50)
[2017-05-06] MEDS: ASPIRIN 81MG TABLET NG SCH (08:55)
[2017-05-06] MEDS: FOLIC ACID 1MG TABLET PO SCH (08:55)
[2017-05-06] MEDS: POTASSIUM CHLORIDE 20MEQ/PACKET PEG SCH (08:55)
[2017-05-06] MEDS ORDERED: ENOXAPARIN 30MG/0.3ML SYR SUBCUT SCH (09:00)
[2017-05-06] MEDS: DEXT 5%/0.2% NACL 1,000 ML IV SCH (11:25)
[2017-05-07] VITALS (69 sets, daily range): BP systolic 98–120; BP diastolic 66–97
[2017-05-07] MEDS: IPRATROPIUM/ALBUTEROL 0.5-3(2.5)MG/3ML NEB HHN SCH ×4 (00:11→20:20)
[2017-05-07] MEDS: BLOOD SUGAR DIAGNOSTIC STRIP TEST SCH ×4 (00:18→23:31)
[2017-05-07] MEDS: METOCLOPRAMIDE 10MG/10 ML UDC NG SCH ×4 (00:25→23:54)
[2017-05-07] MEDS: PIPERACILLIN/TAZ 2.25G PREMIX 50 ML IV SCH ×4 (00:25→23:54)
[2017-05-07 08:41] LABS: BASOPHILS % 0.9 % (0.0-2.0); EOSINOPHILS % 0.1 % (0.0-5.0); HEMATOCRIT. 41.6 % (42.0-52.0); HEMOGLOBIN. 13.3 g/dL (14.0-18.0); MEAN CORPUSCULAR HEMOGLOBIN 24.4 pg (28.0-32.0); MEAN CORPUSCULAR VOLUME 76.1 fL (80.0-94.0); MEAN PLATELET VOLUME 7.9 fl (7.4-10.4); PLATELET 163 x1000/uL (130-400); RED BLOOD CELL COUNT 5.46 mill/uL (4.7-6.1); RED CELL DISTRIBUTION WIDTH 21.2 % (11.6-14.6)
[2017-05-07] MEDS: PANTOPRAZOLE SODIUM 40 MG/VIAL IV SCH (09:05)
[2017-05-07] MEDS: POTASSIUM CHLORIDE 20MEQ/PACKET PEG SCH (09:05)
[2017-05-07] MEDS: FOLIC ACID 1MG TABLET PO SCH (09:05)
[2017-05-07] MEDS: ASPIRIN 81MG TABLET NG SCH (09:06)
[2017-05-07] MEDS: NOREPINEPHRINE 4 MG in DEXT 5% WATER 246 ML IV PRN (10:31)
[2017-05-07] MEDS: INSULIN LISPRO 100 UNITS/ML SUBCUT SCH ×4 (11:38→23:30)
[2017-05-07] MEDS: DEXT 5%/0.2% NACL 1,000 ML IV SCH ×2 (19:45→20:51)
[2017-05-07] MEDS ORDERED: VANCOMYCIN 1 G PREMIX 200 ML IV NR (21:00)
[2017-05-08] VITALS (84 sets, daily range): BP systolic 101–123; BP diastolic 72–97
[2017-05-08] MEDS: IPRATROPIUM/ALBUTEROL 0.5-3(2.5)MG/3ML NEB HHN SCH ×6 (00:04→19:58)
[2017-05-08] MEDS: NOREPINEPHRINE 4 MG in DEXT 5% WATER 246 ML IV PRN ×2 (02:40→21:07)
[2017-05-08] MEDS: INSULIN LISPRO 100 UNITS/ML SUBCUT SCH ×3 (06:00→17:18)
[2017-05-08] MEDS: PIPERACILLIN/TAZ 2.25G PREMIX 50 ML IV SCH ×3 (06:34→18:00)
[2017-05-08] MEDS: METOCLOPRAMIDE 10MG/10 ML UDC NG SCH ×3 (06:34→17:59)
[2017-05-08] MEDS: BLOOD SUGAR DIAGNOSTIC STRIP TEST SCH ×3 (06:34→17:18)
[2017-05-08] MEDS: PANTOPRAZOLE SODIUM 40 MG/VIAL IV SCH (08:12)
[2017-05-08] MEDS: FOLIC ACID 1MG TABLET PO SCH (08:12)
[2017-05-08] MEDS: ASPIRIN 81MG TABLET NG SCH (08:12)
[2017-05-08] MEDS: POTASSIUM CHLORIDE 20MEQ/PACKET PEG SCH (08:13)
[2017-05-08] MEDS: DEXT 5%/0.2% NACL 1,000 ML IV SCH (12:24)
[2017-05-09] VITALS (88 sets, daily range): BP systolic 96–130; BP diastolic 67–92
[2017-05-09] MEDS: BLOOD SUGAR DIAGNOSTIC STRIP TEST SCH ×4 (00:08→18:41)
[2017-05-09] MEDS: METOCLOPRAMIDE 10MG/10 ML UDC NG SCH ×4 (00:08→18:31)
[2017-05-09] MEDS: PIPERACILLIN/TAZ 2.25G PREMIX 50 ML IV SCH ×4 (00:10→18:32)
[2017-05-09] MEDS: IPRATROPIUM/ALBUTEROL 0.5-3(2.5)MG/3ML NEB HHN SCH ×6 (00:13→19:55)
[2017-05-09] MEDS: INSULIN LISPRO 100 UNITS/ML SUBCUT SCH ×4 (05:49→18:00)
[2017-05-09 06:24] LABS: BASOPHILS % 1.2 % (0.0-2.0); EOSINOPHILS % 0.1 % (0.0-5.0); HEMOGLOBIN. 13.1 g/dL (14.0-18.0); LYMPHOCYTES % 11.7 % (20.0-50.0); MEAN CORPUSCULAR HEMOGLOBIN 24.4 pg (28.0-32.0); MEAN CORPUSCULAR VOLUME 76.7 fL (80.0-94.0); MEAN PLATELET VOLUME 8.1 fl (7.4-10.4); MONOCYTES % 6.3 % (2.0-8.0); NEUTROPHILS % 80.7 % (40.0-76.0); PLATELET 157 x1000/uL (130-400); RED BLOOD CELL COUNT 5.35 mill/uL (4.7-6.1); RED CELL DISTRIBUTION WIDTH 21.3 % (11.6-14.6)
[2017-05-09 06:26] LABS: PHOSPHORUS 3.3 mg/dL (2.5-4.9)
[2017-05-09] MEDS: ASPIRIN 81MG TABLET NG SCH (09:00)
[2017-05-09] MEDS: POTASSIUM CHLORIDE 20MEQ/PACKET PEG SCH (09:10)
[2017-05-09] MEDS: FOLIC ACID 1MG TABLET PO SCH (09:10)
[2017-05-09] MEDS: PANTOPRAZOLE SODIUM 40 MG/VIAL IV SCH (09:10)
[2017-05-09] MEDS: NOREPINEPHRINE 4 MG in DEXT 5% WATER 246 ML IV PRN (14:11)
[2017-05-09] MEDS ORDERED: MORPHINE SULFATE 250 MG in DEXT 5% WATER 240 ML IV PRN (20:15)
[2017-05-09] MEDS ORDERED: VANCOMYCIN 750 MG PREMIX 150 ML IV SCH (21:00)
[2017-05-10] MEDS ORDERED: DEXT 5%/0.2% NACL 1,000 ML IV SCH
== END 2017-05-09 22:50 | disposition expired | DRG 720 ==
LOC: ER 15:39 → CVICU 23:39 → EDBEDREQ 23:43 → CANRESERV 04-28 02:28 → ENRESERV 04-28 02:28 → EDBEDREQTM 04-28 03:48 → EDBEDREQSVC 04-28 03:48 → ENRESERV 04-28 04:40 → CVICU 04-28 06:24 → UNDOADMIN 04-28 06:24
PROVIDERS: ADMIT Internal Medicine Nephrology; ATTEND Internal Medicine Nephrology
PROC: 5A1955Z Respiratory Ventilation, Greater than 96 Consecutive Hours (ICD-10-PCS; principal; 2017-04-28)
PROC: 0BH17EZ Insertion of Endotracheal Airway into Trachea, Via Natural or Artificial Opening (ICD-10-PCS; 2017-04-28)
PROC: 02HV33Z Insertion of Infusion Device into Superior Vena Cava, Percutaneous Approach (ICD-10-PCS; 2017-05-03)
PROC: B548ZZA Ultrasonography of Superior Vena Cava, Guidance (ICD-10-PCS; 2017-05-03)
DX: A41.9 Sepsis, unspecified organism (principal); I21.4 Non-ST elevation (NSTEMI) myocardial infarction; J96.00 Acute respiratory failure, unspecified whether with hypoxia or hypercapnia; K72.00 Acute and subacute hepatic failure without coma; I46.9 Cardiac arrest, cause unspecified; G93.1 Anoxic brain damage, not elsewhere classified; J69.0 Pneumonitis due to inhalation of food and vomit; D68.9 Coagulation defect, unspecified; I42.0 Dilated cardiomyopathy; E43 Unspecified severe protein-calorie malnutrition; R65.21 Severe sepsis with septic shock; E87.1 Hypo-osmolality and hyponatremia; I50.23 Acute on chronic systolic (congestive) heart failure; I11.0 Hypertensive heart disease with heart failure; D50.9 Iron deficiency anemia, unspecified; E87.6 Hypokalemia; F14.10 Cocaine abuse, uncomplicated; F12.10 Cannabis abuse, uncomplicated; F17.200 Nicotine dependence, unspecified, uncomplicated; F41.9 Anxiety disorder, unspecified; I27.20 Pulmonary hypertension, unspecified; I34.0 Nonrheumatic mitral (valve) insufficiency; N17.0 Acute kidney failure with tubular necrosis; Z51.5 Encounter for palliative care; Z66 Do not resuscitate; Z91.19 Patient's noncompliance with other medical treatment and regimen; Z91.81 History of falling; Z68.33 Body mass index [BMI] 33.0-33.9, adult
CPT/HCPCS: 31500; 36415; 36569; 36600; 43753; 51702; 70450; 70551; 71010; 74000; 76937; 80048; 80053; 80202; 80305; 81001; 82375; 82805; 82962; 83036; 83605; 83735; 83880; 84100; 84484; 85025; 85610; 85651; 85730; 87040; 87070; 87086; 87186; 87493; 93005; 93306; 93970; 94002; 94003; 94640; 94664; 96361; 96365; 96367; 96375; 99285; A6261; C1725; C9113; J0171; J0456; J1650; J1940; J2270; J2543; J3370; J3475; J3480; J3490; J7030; J7040; J7042; J7050; J7060; J7620; J8597; A4315